=== PATIENT | female | born 1980 | race Caucasian/White ===

== ENCOUNTER 2019-12-31 15:53 | Emergency (ER) | payer OTHER ==
[~2019-12-31] VITALS: Ht 172.7 cm; Wt 64.0 kg
[2019-12-31 16:07] VITALS: BP 111/70; Ht 172.7 cm; Wt 64.0 kg
== END 2019-12-31 17:00 | disposition home or self-care (01) ==
LOC: ED 15:53
DX: S70.312A Abrasion, left thigh, initial encounter (principal); W45.8XXA Other foreign body or object entering through skin, initial encounter; Y93.89 Activity, other specified; Y92.89 Other specified places as the place of occurrence of the external cause; Y99.8 Other external cause status
CPT/HCPCS: 90715

== ENCOUNTER 2020-01-22 14:09 | Emergency (ER) | payer OTHER ==
[~2020-01-22] VITALS: Ht 172.7 cm; Wt 61.7 kg
[2020-01-22 14:14] VITALS: Ht 172.7 cm; Wt 61.7 kg
[2020-01-22 15:38] VITALS: BP 117/83
== END 2020-01-22 15:38 | disposition home or self-care (01) ==
LOC: ED 14:09
DX: B35.3 Tinea pedis (principal); F17.210 Nicotine dependence, cigarettes, uncomplicated; Z90.49 Acquired absence of other specified parts of digestive tract
CPT/HCPCS: 99406